=== PATIENT | male | born 1940 | race Two or more races ===

== ENCOUNTER 2021-04-14 10:45 | Inpatient (IN) | payer MEDICARE ==
[~2021-04-14] VITALS: Ht 175.3 cm; Wt 70.0 kg
[~2021-04-14 10:45] MED LIST: ADAL40IN2 SC; AML5T PO; APIX5TAB PO; ATOR20TA PO; CHOL100046 PO; DEXL60CA4 PO; FURO40TA4 PO; GLIP10TA9 PO; LEVOTAB51 PO; LIDO5DIS21 TOP; METF-929 PO; METH2.5T PO; NAS17NSL; POTA-220 PO; SITA100T7 PO; SOTA80TA PO; TELM80TA PO
[2021-04-14 11:52] LABS: Urine WBC None Seen /hpf (0 - 3)
[2021-04-14 12:02] LABS: Urine Bacteria NONE SEEN /hpf (None Seen); Urine Blood TRACE /uL (Negative); Urine Hyaline Cast FEW /lpf (0 - 2); Urine Specific Gravity 1.011 (1.001-1.035)
[2021-04-14] MEDS ORDERED: SODIUM CHLORIDE 0.9% 1,000 ML IV ONE (12:30)
[2021-04-14 12:54] LABS: Basophils # (auto) 0 10 ^3/uL (0-0.2); Eosinophils # (auto) 0 10 ^3/uL (0-0.8); Hemoglobin 12.7 g/dL (13.5-17.5); Lymphocytes # (auto) 0.4 10 ^3/uL (0.4-5.4); Lymphocytes % (auto) 2.9 % (10.0-50.0); Monocytes % (auto) 8.1 % (0.0-12.0); White Blood Cell 12.4 10^3/uL (4.4-10.8)
[2021-04-14 12:55] LABS: Basophils % (auto) 0.4 % (0.0-2.0); Eosinophils % (auto) 0.3 % (0.0-7.0); Hematocrit 37.9 % (41.0-53.0); Mean Corpuscular Hemoglobin 26.3 pg (28.0-32.0); Mean Corpuscular Hgb Conc. 33.5 g/dL (32.0-36.0); Mean Corpuscular Volume 78.6 fL (80.0-100.0); Neutrophils % (auto) 88.3 % (37.0-80.0); Red Blood Cells 4.82 10^6/uL (4.5-5.90); Red Cell Distribution Width 17.2 % (11.8-14.3)
[2021-04-14 13:02] LABS: Albumin 3.1 g/dL (3.4-5.0); Anion Gap 5 (5-15); Blood Urea Nitrogen 9 mg/dL (7-18); Calcium 7.9 mg/dL (8.5-10.1); Carbon Dioxide 24 mmol/L (21-32); Chloride 107 mmol/L (98-107); Glucose 117 mg/dL (74-106); Potassium 3.9 mmol/L (3.5-5.1); Sodium 136 mmol/L (136-145)
[2021-04-14 13:07] LABS: Alanine Aminotransferase 20 U/L (16-61); Alkaline Phosphatase 97 U/L (45-117); Aspartate Aminotransferase 20 U/L (15-37); BUN/Creatinine Ratio 11.1; GFR African American 118 mL/min; GFR Non-African American 98 mL/min; Total Protein 7.1 g/dL (6.4-8.2)
[2021-04-14] MEDS ORDERED: ASPirin 81 mg TAB PO ONE (15:30)
[2021-04-14] MEDS ORDERED: cefTRIAXone 1GM/50ML D5W 50 ML IV ONE (15:30)
[2021-04-14] MEDS ORDERED: NITROGLYCERIN 0.4 MG SL TAB SL PRN (16:30)
[2021-04-14] MEDS ORDERED: MORPHINE SULFATE INJECTION 2 MG/ML SYRG IV PRN (16:30)
[2021-04-14] MEDS ORDERED: ONDANSETRON HCL 4 MG/2 ML VIAL IV PRN (16:45)
[2021-04-14] MEDS ORDERED: LACTULOSE 20Gm/30ML SOLN PO PRN (16:45)
[2021-04-14] MEDS ORDERED: traMADol HCL 50 MG TAB PO PRN (16:45)
[2021-04-14] MEDS ORDERED: LABETALOL HCL 5 MG/ML ML 20ML VIAL IV PRN (16:45)
[2021-04-14] MEDS ORDERED: DEXTROSE (50%) 50ML SYRG IV PRN (16:45)
[2021-04-14] MEDS: SODIUM CHLORIDE 0.9% 1,000 ML IV SCH (16:59)
[2021-04-14] MEDS: InsuLIN REG 1unit/0.01ml Soln (100units/ml) SC SCH ×2 (17:00→22:02)
[2021-04-14 18:17] VITALS: BP 151/93
[2021-04-14] MEDS: ACCU-CHEK COMFORT CURVE STRIP VI SCH ×2 (18:54→22:01)
[2021-04-14] MEDS: ACETAMINOPHEN 500 MG TAB PO PRN (20:28)
[2021-04-14 22:00] VITALS: BP 129/57
[2021-04-14] MEDS ORDERED: ATORVASTATIN 20 MG TAB PO SCH (22:00)
[2021-04-14] MEDS: APIXABAN 5 MG TAB PO SCH (22:01)
[2021-04-14] MEDS: SOTALOL HCL 80 MG TAB PO SCH (22:01)
[2021-04-15] MEDS: SODIUM CHLORIDE 0.9% 1,000 ML IV SCH ×2 (04:54→18:21)
[2021-04-15 05:00] VITALS: BP 123/54
[2021-04-15] MEDS: ACCU-CHEK COMFORT CURVE STRIP VI SCH ×4 (06:17→21:39)
[2021-04-15] MEDS: InsuLIN REG 1unit/0.01ml Soln (100units/ml) SC SCH ×4 (06:17→21:39)
[2021-04-15 06:47] LABS: Albumin 2.8 g/dL (3.4-5.0); Calcium 8.3 mg/dL (8.5-10.1); Potassium 3.7 mmol/L (3.5-5.1)
[2021-04-15 06:51] LABS: BUN/Creatinine Ratio 12.5; Bilirubin, Total 1.1 mg/dL (0.2-1.0); Total Protein 7.2 g/dL (6.4-8.2)
[2021-04-15 09:00] VITALS: BP 116/57
[2021-04-15] MEDS: cefTRIAXone 1GM/50ML D5W 50 ML IV SCH (09:58)
[2021-04-15] MEDS: Sitagliptin Phosphate (Januvia) 100 MG TAB PO SCH (09:59)
[2021-04-15] MEDS: ASPirin 81 mg TAB PO SCH (09:59)
[2021-04-15] MEDS: SOTALOL HCL 80 MG TAB PO SCH (10:00)
[2021-04-15] MEDS ORDERED: LOSARTAN POTASSIUM 50 MG TAB PO SCH (10:00)
[2021-04-15] MEDS: LORATADINE 10 MG TAB PO SCH (10:00)
[2021-04-15] MEDS: ATORVASTATIN 20 MG TAB PO SCH (10:01)
[2021-04-15] MEDS: APIXABAN 5 MG TAB PO SCH (10:01)
[2021-04-15 13:00] VITALS: BP 119/67
[2021-04-15 17:00] VITALS: BP 136/75
[2021-04-15] MEDS: Glucerna Carbsteady SHAKE Vanilla 8oz PO SCH (18:21)
[2021-04-16 05:20] LABS: Basophils # (auto) 0 10 ^3/uL (0-0.2); Basophils % (auto) 0.2 % (0.0-2.0); Eosinophils # (auto) 0 10 ^3/uL (0-0.8); Eosinophils % (auto) 0.1 % (0.0-7.0); Hemoglobin 12.4 g/dL (13.5-17.5); Lymphocytes # (auto) 0.9 10 ^3/uL (0.4-5.4); Lymphocytes % (auto) 8.5 % (10.0-50.0); Mean Corpuscular Hgb Conc. 34.4 g/dL (32.0-36.0); Mean Corpuscular Volume 78.6 fL (80.0-100.0); Monocytes % (auto) 9.4 % (0.0-12.0); Neutrophils # (auto) 8.5 10 ^3/uL (1.6-8.6); Neutrophils % (auto) 81.8 % (37.0-80.0); Nucleated Red Blood Cells % 0.1 %; Red Blood Cells 4.59 10^6/uL (4.5-5.90); Red Cell Distribution Width 17.2 % (11.8-14.3); White Blood Cell 10.4 10^3/uL (4.4-10.8)
[2021-04-16 05:38] LABS: INR 1.18 (0.9-1.15)
[2021-04-16 06:11] LABS: Potassium 3.6 mmol/L (3.5-5.1)
[2021-04-16] MEDS: SODIUM CHLORIDE 0.9% 1,000 ML IV SCH (06:13)
[2021-04-16] MEDS: ACCU-CHEK COMFORT CURVE STRIP VI SCH ×4 (06:16→21:40)
[2021-04-16] MEDS: InsuLIN REG 1unit/0.01ml Soln (100units/ml) SC SCH ×4 (06:17→22:09)
[2021-04-16 06:25] LABS: Albumin 2.8 g/dL (3.4-5.0); BUN/Creatinine Ratio 14.7; Bilirubin, Total 1.2 mg/dL (0.2-1.0); Total Protein 7.1 g/dL (6.4-8.2)
[2021-04-16 09:00] VITALS: BP 154/81
[2021-04-16] MEDS: cefTRIAXone 1GM/50ML D5W 50 ML IV SCH (09:25)
[2021-04-16] MEDS: Glucerna Carbsteady SHAKE Vanilla 8oz PO SCH ×3 (09:25→18:04)
[2021-04-16] MEDS: ASPirin 81 mg TAB PO SCH (09:25)
[2021-04-16] MEDS: LORATADINE 10 MG TAB PO SCH (09:26)
[2021-04-16] MEDS: Sitagliptin Phosphate (Januvia) 100 MG TAB PO SCH (09:26)
[2021-04-16] MEDS: ATORVASTATIN 20 MG TAB PO SCH (09:27)
[2021-04-16] MEDS: LOSARTAN POTASSIUM 25 MG TAB PO SCH (09:27)
[2021-04-16 13:00] VITALS: BP 138/63
[2021-04-16] MEDS: ACETAMINOPHEN 500 MG TAB PO PRN ×2 (15:22→17:06)
[2021-04-16] MEDS ORDERED: FUROSEMIDE 20 MG/2 ML VIAL IV SCH (15:45)
[2021-04-16 17:00] VITALS: BP 117/58
[2021-04-16 19:04] VITALS: BP 117/58
[2021-04-16] MEDS: ALBUTEROL SULF 2.5 MG/0.5ML(0.5%) NEB SOLN NEB SCH (19:04)
[2021-04-16 22:00] VITALS: BP 151/83
[2021-04-17 06:15] VITALS: BP 143/63
[2021-04-17] MEDS: InsuLIN REG 1unit/0.01ml Soln (100units/ml) SC SCH ×2 (06:19→11:33)
[2021-04-17] MEDS: ACCU-CHEK COMFORT CURVE STRIP VI SCH ×2 (06:19→11:31)
[2021-04-17] MEDS: ALBUTEROL SULF 2.5 MG/0.5ML(0.5%) NEB SOLN NEB SCH ×3 (06:44→13:51)
[2021-04-17 09:00] VITALS: BP 168/80
[2021-04-17 09:41] LABS: Basophils # (auto) 0 10 ^3/uL (0-0.2); Basophils % (auto) 0.2 % (0.0-2.0); Eosinophils # (auto) 0 10 ^3/uL (0-0.8); Hemoglobin 13.2 g/dL (13.5-17.5); Lymphocytes # (auto) 0.7 10 ^3/uL (0.4-5.4); Lymphocytes % (auto) 7.7 % (10.0-50.0); Monocytes # (auto) 0.8 10 ^3/uL (0-1.3); Monocytes % (auto) 8.8 % (0.0-12.0); White Blood Cell 8.6 10^3/uL (4.4-10.8)
[2021-04-17 09:42] LABS: Mean Corpuscular Hemoglobin 27.1 pg (28.0-32.0); Mean Corpuscular Hgb Conc. 34.9 g/dL (32.0-36.0); Mean Corpuscular Volume 77.7 fL (80.0-100.0); Neutrophils # (auto) 7.2 10 ^3/uL (1.6-8.6); Neutrophils % (auto) 83.3 % (37.0-80.0); Nucleated Red Blood Cells % 0.1 %; Red Blood Cells 4.89 10^6/uL (4.5-5.90); Red Cell Distribution Width 16.2 % (11.8-14.3)
[2021-04-17] MEDS: Sitagliptin Phosphate (Januvia) 100 MG TAB PO SCH (10:00)
[2021-04-17] MEDS ORDERED: FUROSEMIDE 20 MG/2 ML VIAL IV SCH ×2 (10:00)
[2021-04-17 10:02] LABS: BUN/Creatinine Ratio 11.9; Calcium 8.7 mg/dL (8.5-10.1); Potassium 3.1 mmol/L (3.5-5.1)
[2021-04-17] MEDS ORDERED: RIVAROXABAN 20 MG TAB PO SCH (11:00)
[2021-04-17] MEDS: Glucerna Carbsteady SHAKE Vanilla 8oz PO SCH ×2 (11:14→13:20)
[2021-04-17] MEDS: cefTRIAXone 1GM/50ML D5W 50 ML IV SCH (11:14)
[2021-04-17] MEDS: ASPirin 81 mg TAB PO SCH (11:15)
[2021-04-17] MEDS: LORATADINE 10 MG TAB PO SCH (11:15)
[2021-04-17] MEDS: ATORVASTATIN 20 MG TAB PO SCH (11:16)
[2021-04-17] MEDS: LOSARTAN POTASSIUM 25 MG TAB PO SCH (11:16)
[2021-04-17 12:46] VITALS: BP 114/67
[2021-04-17] MEDS ORDERED: POTASSIUM EFFERVESENT TAB 25 MEQ PO ONE (13:30)
[2021-04-17] MEDS ORDERED: LEVO-28 PO (13:35)
[2021-04-17] MEDS ORDERED: RIV20T PO (13:35)
[2021-04-17 14:12] VITALS: BP 127/81
[2021-04-17] MEDS ORDERED: FER325T PO (15:51)
== END 2021-04-17 16:05 | disposition home or self-care (01) | DRG 177 ==
LOC: EDBD 10:45 → ER 10:45 → TELE 16:34 → TELE-WESTW 18:27
PROVIDERS: ADMIT Internal Medicine; ATTEND Internal Medicine
DX: J69.0 Pneumonitis due to inhalation of food and vomit (principal); G93.41 Metabolic encephalopathy; I50.33 Acute on chronic diastolic (congestive) heart failure; D68.69 Other thrombophilia; E44.0 Moderate protein-calorie malnutrition; I48.92 Unspecified atrial flutter; I13.0 Hypertensive heart and chronic kidney disease with heart failure and stage 1 through stage 4 chronic kidney disease, or unspecified chronic kidney disease; Z20.822 Contact with and (suspected) exposure to COVID-19; I48.0 Paroxysmal atrial fibrillation; M45.9 Ankylosing spondylitis of unspecified sites in spine; E11.22 Type 2 diabetes mellitus with diabetic chronic kidney disease; E11.42 Type 2 diabetes mellitus with diabetic polyneuropathy; D63.8 Anemia in other chronic diseases classified elsewhere; I25.10 Atherosclerotic heart disease of native coronary artery without angina pectoris; R31.29 Other microscopic hematuria; N18.9 Chronic kidney disease, unspecified; E78.5 Hyperlipidemia, unspecified; I49.5 Sick sinus syndrome; R13.10 Dysphagia, unspecified; Z79.82 Long term (current) use of aspirin; Z82.3 Family history of stroke; Z68.22 Body mass index [BMI] 22.0-22.9, adult; Z79.899 Other long term (current) drug therapy; Z83.3 Family history of diabetes mellitus; Z86.73 Personal history of transient ischemic attack (TIA), and cerebral infarction without residual deficits; Z95.5 Presence of coronary angioplasty implant and graft
CPT/HCPCS: 36415; 70450; 70551; 71045; 74176; 80048; 80053; 80061; 81001; 82550; 82962; 83036; 83540; 83550; 83605; 83880; 84443; 84484; 85025; 85610; 85652; 87040; 87086; 87426; 92610; 93306; 93886; 94640; 94660; 96361; 96365; G0378; J0696; J1815